=== PATIENT | female | born 1960 ===

== ENCOUNTER → 2021-11-29 | Emergency (ER) | payer BC ==
[~2021-11-29] MED LIST: Ketorolac 60 MG/2 ML SDV ONE; Ondansetron 4 MG/2 ML SDV ONE
[2021-11-29] MEDS: hydrOXYzine HCl 25 MG Tab PO ONE (12:35)
== END | disposition home or self-care (01) ==
LOC: LB.ED 12:08
DX: F41.9 Anxiety disorder, unspecified (principal); R42 Dizziness and giddiness
CPT/HCPCS: 99281; 99283; A9270-GY